=== PATIENT | male | born 1965 | race Hispanic/Latino ===

== ENCOUNTER 2018-03-11 09:08 | Inpatient (IN) | payer SELFPAY ==
[2018-03-11 09:48] LABS: Absolute Monocytes 0.6 K/uL (0.1-1.3); Absolute Neutrophil 4.3 K/uL (1.8-8.0); Basophils % 0.5 % (0-1.3); Eosinophils % 5.7 % (0-4.4); Hematocrit 42.2 % (39.6-49.0); Lymphocytes % 27.4 % (15.3-44.8); MCH 31.6 pg (27.0-35.0); MCV 90.9 fL (80-100); MPV 8.4 fL (7.6-11.3); Monocytes % 8.4 % (3.3-12.3); RBC Red Blood Cell Count 4.65 M/uL (4.33-5.43)
[2018-03-11 09:58] LABS: Bicarbonate 26 mEq/L (21-31); Glucose Level 131 mg/dL (65-120); Lipase 60 U/L (22-51); Potassium 3.9 mEq/L (3.6-5.0); Sodium Level 139 mEq/L (135-145)
[2018-03-11] MEDS ORDERED: PROMETHAZINE 25 MG/ML VIAL ONE (10:00)
[2018-03-11] MEDS ORDERED: NA CHLORIDE 0.9% 1,000 ML ONE (10:00)
[2018-03-11] MEDS ORDERED: MEPERIDINE HCL 25 MG/0.5 ML ONE (10:00)
[2018-03-11 10:04] LABS: ALT/SGPT 84 IU/L (10-60); AST/SGOT 64 IU/L (10-42); Albumin 3.8 g/dL (3.2-5.5); Alkaline Phosphatase 120 IU/L (42-121); BUN Blood Urea Nitrogen 13 mg/dL (6-20); Bilirubin Direct 0.2 mg/dL (0-0.2); Bilirubin Total 0.7 mg/dL (0.3-1.2); Protein, Total 7.2 g/dL (6.0-8.3)
--- NOTE | 2018-03-11 11:14 | EDPHYS ---
Physician Documentation [facility] Name: Monty Gordon Age: 52 yrs Sex: Male : 1965 Arrival Date: 03/11/2018 Time: 09:12 Bed 14 Private MD: None, None ED Physician Mati Cuellar HPI: 03/11 10:40 This 52 yrs old Male presents to ER via Ambulatory with complaints of jr8 Abdominal Pain. 10:40 The patient presents with abdominal pain in the upper abdomen. Onset: The jr8 symptoms/episode began/occurred acutely, today. The symptoms radiate to right back. Associated signs and symptoms: Pertinent positives: nausea. The symptoms are described as shooting. Modifying factors: The symptoms are alleviated by nothing, the symptoms are aggravated by nothing. Severity of pain: At its worst the pain was moderate in the emergency department the pain is unchanged. The patient has not experienced similar symptoms in the past. The patient has not recently seen a physician. Historical: - Allergies: 09:19 No Known Allergies; aa5 - PMHx: 09:19 Hep C; Asthma; aa5 - PSHx: 09:19 Hernia repair; aa5 - Immunization history:: Adult Immunizations unknown. - Social history:: Smoking status: Patient uses tobacco products, smokes one pack cigarettes per day. - Ebola Screening: : No symptoms or risks identified at this time. ROS: 10:40 Eyes: Negative for injury, pain, redness, and discharge, ENT: Negative for injury, jr8 pain, and discharge, Neck: Negative for injury, pain, and swelling, Cardiovascular: Negative for chest pain, palpitations, and edema, Respiratory: Negative for shortness of breath, cough, wheezing, and pleuritic chest pain, Back: Negative for injury and pain, MS/Extremity: Negative for injury and deformity, Skin: Negative for injury, rash, and discoloration, Neuro: Negative for headache, weakness, numbness, tingling, and seizure. 10:40 Abdomen/GI: Positive for abdominal pain, nausea, Negative for diarrhea, constipation, abdominal cramps, abdominal distension, anorexia, dysphagia, hematemesis, black/tarry stool, rectal pain, rectal bleeding, bowel incontinence, flatulence. Exam: 10:40 Eyes: Pupils equal round and reactive to light, extra-ocular motions intact. Lids and jr8 lashes normal. Conjunctiva and sclera are non-icteric and not injected. Cornea within normal limits. Periorbital areas with no swelling, redness, or edema. ENT: Nares patent. No nasal discharge, no septal abnormalities noted. Tympanic membranes are normal and external auditory canals are clear. Oropharynx with no redness, swelling, or masses, exudates, or evidence of obstruction, uvula midline. Mucous membranes moist. Neck: Trachea midline, no thyromegaly or masses palpated, and no cervical lymphadenopathy. Supple, full range of motion without nuchal rigidity, or vertebral point tenderness. No Meningismus. Cardiovascular: Regular rate and rhythm with a normal S1 and S2. No gallops, murmurs, or rubs. Normal PMI, no JVD. No pulse deficits. Respiratory: Lungs have equal breath sounds bilaterally, clear to auscultation and percussion. No rales, rhonchi or wheezes noted. No increased work of breathing, no retractions or nasal flaring. Back: No spinal tenderness. No costovertebral tenderness. Full range of motion. Skin: Warm, dry with normal turgor. Normal color with no rashes, no lesions, and no evidence of cellulitis. MS/ Extremity: Pulses equal, no cyanosis. Neurovascular intact. Full, normal range of motion. Neuro: Awake and alert, GCS 15, oriented to person, place, time, and situation. Cranial nerves II-XII grossly intact. Motor strength 5/5 in all extremities. Sensory grossly intact. Cerebellar exam normal. Normal gait. 10:40 Abdomen/GI: Inspection: obese Bowel sounds: active, all quadrants, Palpation: soft, in all quadrants, moderate abdominal tenderness, in the right upper quadrant, mass, is not appreciated, rebound tenderness, is not appreciated, voluntary guarding, is not appreciated, involuntary guarding, is not appreciated, no appreciated organomegaly, Indicators: McBurney's point is not tender, Obrien's sign is positive, Rovsing's sign is negative, Liver: no appreciated palpable abnormalities, tenderness, is not appreciated. Vital Signs: 09:18 BP 132 / 90; Pulse 77; Resp 18 S; Temp 97.7(TE); Pulse Ox 97% on R/A; Weight 104.33 kg aa5 (R); Height 5 ft. 8 in. (172.72 cm) (R); Pain 4/10; 12:00 BP 130 / 94; Pulse 79; Resp 16 S; Pulse Ox 98% on R/A; Pain 3/10; sg 13:20 BP 124 / 88; Pulse 62; Resp 16; Temp 97.7; Pulse Ox 97% on R/A; Pain 0/10; sg 09:18 Body Mass Index 34.97 (104.33 kg, 172.72 cm) aa5 MDM: 09:22 Patient medically screened. [facility] 11:03 Data reviewed: vital signs, nurses notes, lab test result(s), radiologic studies, jr8 ultrasound, and as a result, I will admit patient. Data interpreted: Pulse oximetry: on room air is 97 %. Interpretation: normal. Counseling: I had a detailed discussion with the patient and/or guardian regarding: the historical points, exam findings, and any diagnostic results supporting the discharge/admit diagnosis, lab results, radiology results, the need for further work-up and treatment in the hospital. Physician consultation: Jace Goss DO was called at 11:03, was contacted at 11:03, regarding admission, to the medical/surgical unit. consult, patient's condition, and will see patient. 03/11 09:23 Order name: Basic Metabolic Panel; Complete Time: 10:41 03/11 09:23 Order name: CBC with Diff; Complete Time: 09:50 03/11 09:23 Order name: Creatinine for Radiology; Complete Time: 10:01 03/11 09:23 Order name: Hepatic Function; Complete Time: 10:41 03/11 09:23 Order name: Lipase; Complete Time: 10:41 03/11 11:28 Order name: Protime (+inr); Complete Time: 12:06 03/11 11:28 Order name: Ptt, Activated; Complete Time: 12:06 03/11 11:36 Order name: CBC with Automated Diff EDMS 03/11 11:36 Order name: CBC with Automated Diff EDMS 03/11 11:36 Order name: CBC with Automated Diff EDMS 03/11 11:36 Order name: CBC with Automated Diff EDMS 03/11 11:36 Order name: Comprehensive Metabolic Panel EDMS 03/11 11:36 Order name: Comprehensive Metabolic Panel EDMS 03/11 11:36 Order name: Comprehensive Metabolic Panel [facility] 03/11 09:57 Order name: US Abdomen Limited hb 03/11 11:31 Order name: CONS Physician Consult [facility] 03/11 11:36 Order name: CONS Physician Consult [facility] 03/11 11:36 Order name: Comprehensive Metabolic Panel [facility] 03/11 11:36 Order name: Magnesium [facility] 03/11 11:36 Order name: Magnesium [facility] 03/11 11:36 Order name: Magnesium [facility] 03/11 11:36 Order name: Magnesium [facility] 03/11 11:36 Order name: Protime (+INR) [facility] 03/11 11:36 Order name: Protime (+INR) [facility] 03/11 11:37 Order name: Urinalysis [facility] 03/11 11:37 Order name: Cholangiogram [facility] 03/11 12:53 Order name: Urine Dipstick--Ancillary (enter results) 03/11 09:23 Order name: IV Saline Lock; Complete Time: 09:46 [facility] 03/11 09:23 Order name: Labs collected and sent; Complete Time: 09:47 [facility] 03/11 09:23 Order name: Urine Dipstick-Ancillary (obtain specimen); Complete Time: 13:24 [facility] 03/11 11:36 Order name: NPO [facility] 03/11 11:37 Order name: Respiratory Therapy Consult [facility] Administered Medications: 10:09 Drug: Demerol 25 mg Route: IVP; Site: left antecubital; sg 11:45 Follow up: Response: No adverse reaction; Pain is decreased sg 10:09 Drug: Phenergan 12.5 mg Route: IVP; Site: left antecubital; sg 11:45 Follow up: Response: No adverse reaction; Nausea is decreased sg 10:09 Drug: NS 0.9% 1000 ml Route: IV; Rate: 125 ml/hr; Site: left antecubital; sg 13:27 Follow up: Response: No adverse reaction; IV Status: Infusion continued upon admission; sg IV Intake: 500ml Disposition: 16:52 Co-signature as Attending Physician, Mati Cuellar MD I agree with the assessment and kdr plan of care. Disposition: 03/11/18 11:13 Hospitalization ordered by Jace Goss for Inpatient Admission. Preliminary diagnosis are Cholelithiasis, Choledocholithiasis. - Bed requested for Telemetry/MedSurg (Inpatient). - Status is Inpatient Admission. sg - Condition is Stable. - Problem is new. - Symptoms have improved. UTI on Admission? No Signatures: Dispatcher [employer] EDMS Steffany Alvarez bd Tiago Mae RN RN sg Mati Cuellar MD MD [facility] Destini Zhu RN RN aa5 Pradeep Clark PA PA jr8 Corrections: (The following items were deleted from the chart) 12:29 11:13 Hospitalization Ordered by Jace Wolfgang for Inpatient Admission. Preliminary bd diagnosis is Cholelithiasis; Choledocholithiasis. Bed requested for Telemetry/MedSurg (Inpatient). Status is Inpatient Admission. Condition is Stable. Problem is new. Symptoms have improved. UTI on Admission? No. jr8 13:46 12:29 03/11/2018 11:13 Hospitalization Ordered by Jace Wolfgang AL for Inpatient sg Admission. Preliminary diagnosis is Cholelithiasis; Choledocholithiasis. Bed requested for Telemetry/MedSurg (Inpatient). Status is Inpatient Admission. Condition is Stable. Problem is new. Symptoms have improved. UTI on Admission? No. bd
--- NOTE | 2018-03-11 11:14 | ER ---
Nurse's Notes [facility] Name: Monty Gordon Age: 52 yrs Sex: Male : 1965 Arrival Date: 03/11/2018 Time: 09:12 Bed 14 Private MD: None, None Diagnosis: Cholelithiasis;Choledocholithiasis Presentation: 03/11 09:19 Presenting complaint: Patient states: "I woke up with abdominal pain today". Pt c/o RUQ aa5 pain and nausea. Pt denies V/D. Transition of care: patient was not received from another setting of care. Onset of symptoms was March 11, 2018. Risk Assessment: Do you want to hurt yourself or someone else? Patient reports no desire to harm self or others. Initial Sepsis Screen: Does the patient meet any 2 criteria? No. Patient's initial sepsis screen is negative. Does the patient have a suspected source of infection? No. Patient's initial sepsis screen is negative. Care prior to arrival: None. 09:19 Method Of Arrival: Ambulatory aa5 09:19 Acuity: BALBIR 3 aa5 Historical: - Allergies: 09:19 No Known Allergies; aa5 - PMHx: 09:19 Hep C; Asthma; aa5 - PSHx: 09:19 Hernia repair; aa5 - Immunization history:: Adult Immunizations unknown. - Social history:: Smoking status: Patient uses tobacco products, smokes one pack cigarettes per day. - Ebola Screening: : No symptoms or risks identified at this time. Screenin:20 Abuse screen: Denies threats or abuse. Denies injuries from another. Nutritional sg screening: No deficits noted. Tuberculosis screening: No symptoms or risk factors identified. Never had TB. Fall Risk None identified. Assessment: 09:20 General: Appears in no apparent distress. comfortable, well groomed, well developed, sg well nourished, Behavior is calm, cooperative, appropriate for age. Pain: Complains of pain in right upper quadrant Pain does not radiate. Quality of pain is described as aching, crampy. Neuro: No deficits noted. Cardiovascular: Heart tones S1 S2 present Capillary refill is brisk in bilateral fingers Patient's skin is warm and dry. Chest pain is denied. Respiratory: Airway is patent Respiratory effort is even, unlabored, Respiratory pattern is regular, symmetrical. GI: Abdomen is round non-distended, Bowel sounds present X 4 quads. Abd is soft X 4 quads Abdomen is tender to palpation in right upper quadrant. : No signs and/or symptoms were reported regarding the genitourinary system. EENT: No signs and/or symptoms were reported regarding the EENT system. Derm: Skin is pink, warm \\T\\ dry. Musculoskeletal: No signs and/or symptoms reported regarding the musculoskeletal system. 11:13 Reassessment: and Pradeep PEREZ at bedside updating pt and pt family on results, sg POC, and need for admission, pt and pt family stated understanding, no new orders received at this time, will continue to monitor. 12:00 Reassessment: Patient appears in no apparent distress at this time. Patient and/or sg family updated on plan of care and expected duration. Pain level reassessed. Patient is alert, oriented x 3, equal unlabored respirations, skin warm/dry/pink. pt laying supine in bed, eyes closed, no s/s of distress noted, awaiting a bed for admission at this time, no new orders have been received, pt and pt family stated understanding, will continue to monitor. 12:58 Reassessment: Patient appears in no apparent distress at this time. Patient and/or sg family updated on plan of care and expected duration. Pain level reassessed. Patient is alert, oriented x 3, equal unlabored respirations, skin warm/dry/pink. pt updated attempted to call report, pt nurse for 219 unavailable at this time, informed that 2nd floor charge nurse stated will call back for report, awaiting call back at this time, pt stated understanding. 13:22 Reassessment: Patient appears in no apparent distress at this time. Patient is alert, sg oriented x 3, equal unlabored respirations, skin warm/dry/pink. Patient states feeling better. Patient states symptoms have improved. 13:49 Reassessment: pt to MRI for CHOLIOANGIOGRAM testing, the pt to room 219, spoke with neil Gibbons to notify Fransico PATEL for 219. Vital Signs: 09:18 BP 132 / 90; Pulse 77; Resp 18 S; Temp 97.7(TE); Pulse Ox 97% on R/A; Weight 104.33 kg aa5 (R); Height 5 ft. 8 in. (172.72 cm) (R); Pain 4/10; 12:00 BP 130 / 94; Pulse 79; Resp 16 S; Pulse Ox 98% on R/A; Pain 3/10; sg 13:20 BP 124 / 88; Pulse 62; Resp 16; Temp 97.7; Pulse Ox 97% on R/A; Pain 0/10; sg 09:18 Body Mass Index 34.97 (104.33 kg, 172.72 cm) aa5 ED Course: 09:12 Patient arrived in ED. mr 09:12 None, None is Private Physician. mr 09:18 Arm band placed on Patient placed in an exam room, on a stretcher. aa5 09:19 Tiago Mae, RN is Primary Nurse. sg 09:20 Triage completed. aa5 09:20 No provider procedures requiring assistance completed. Initial lab(s) drawn, by me, sg sent to lab. Inserted saline lock: 20 gauge in left antecubital area, using aseptic technique. Blood collected. 09:22 [facility] jr8 09:22 Mati Cuellar MD is Attending Physician. jr8 09:22 Patient has correct armband on for positive identification. Placed in gown. Bed in low sg position. Side rails up X2. Pulse ox on. NIBP on. Warm blanket given. Head of bed elevated. 10:47 US Abdomen Limited In Process Unspecified. EDMS 10:47 Ultrasound completed. Patient tolerated well. aa4 11:12 Jace Goss DO is Hospitalizing Provider. jr8 13:00 Urine collected: clean catch specimen, jere colored. sg 13:25 Patient admitted, IV remains in place. intact, No redness/swelling at site. sg Administered Medications: 10:09 Drug: Demerol 25 mg Route: IVP; Site: left antecubital; sg 11:45 Follow up: Response: No adverse reaction; Pain is decreased sg 10:09 Drug: Phenergan 12.5 mg Route: IVP; Site: left antecubital; sg 11:45 Follow up: Response: No adverse reaction; Nausea is decreased sg 10:09 Drug: NS 0.9% 1000 ml Route: IV; Rate: 125 ml/hr; Site: left antecubital; sg 13:27 Follow up: Response: No adverse reaction; IV Status: Infusion continued upon admission; sg IV Intake: 500ml Intake: 13:27 IV: 500ml; Total: 500ml. sg Output: 13:00 Urine: 400ml (Voided); Total: 400ml. sg Outcome: 11:13 Decision to Hospitalize by Provider. francoise 13:40 Admitted to Med/surg accompanied by tech, via wheelchair, room 219, with chart, Report sg called to Fransico PATEL 13:40 Condition: stable 13:40 Instructed on the need for admit, safety practices, Demonstrated understanding of instructions. 13:46 Patient left the ED. sg Signatures: Dispatcher [employer] EDMS Tiago Mae RN RN Yvonne Jay mr MarionMartinEstella blackwell aa4 Destini Zhu RN RN aa5 Pradeep Clark PA PA jr8 Corrections: (The following items were deleted from the chart) 13:49 13:25 Admitted to Med/surg accompanied by tech, via wheelchair, room 219, with chart, sg Report called to Fransico PATEL sg 13:49 13:25 Condition: stable sg sg 13:49 13:25 Instructed on the need for admit, safety practices, Demonstrated understanding of sg instructions, sg
[2018-03-11] MEDS ORDERED: ACETAMINOPHEN 650MG/RECT SUPP PR PRN (11:29)
[2018-03-11] MEDS ORDERED: SODIUM CHLORIDE 0.9% 10ML INJ IV PRN (11:29)
[2018-03-11] MEDS ORDERED: ONDANSETRON 4 MG/2 ML VIAL IV PRN (11:29)
[2018-03-11] MEDS ORDERED: IPRATROPIUM BROM 0.5MG/2.5ML NEB PRN (11:29)
[2018-03-11] MEDS ORDERED: ACETAMINOPHEN 500 MG TAB PO PRN (11:29)
[2018-03-11] MEDS ORDERED: ALBUTEROL 2.5 MG/3 ML NEB SOL NEB PRN (11:29)
[2018-03-11] MEDS ORDERED: CEFOXITIN SODIUM 1 GM/VIAL IVPB SCH (12:00)
[2018-03-11 12:05] LABS: Protime INR 1.01
--- NOTE | 2018-03-11 12:08 | P.HP ---
Certification for Inpatient Patient admitted to: Inpatient With expected LOS: >2 Midnights Patient will require the following post-hospital care: None Practitioner: I am a practitioner with admitting privileges, knowledge of patient current condition, hospital course, and medical plan of care. Services: Services provided to patient in accordance with Admission requirements found in Title 42 Section 412.3 of the Code of Federal Regulations Patient History Date of Service: 03/11/18 Primary Care Provider: None Reason for admission: Right upper quadrant abdominal pain History of Present Illness: 52-year-old male presented to the emergency room with right upper quadrant abdominal pain last night and got worse. Patient ate around 530 this morning. The pain persisted. He rated the pain about a 5/10. It was mainly to the upper quadrant right side. No radiation of pain noted. He had some nausea with this. No fever chills noted. Patient came to the ER for evaluation. Patient seen in the ER. White count 7.4, hemoglobin 14.7. Sodium 139, potassium 3.9, BUN of 13, creatinine 0.6 with a GFR greater than 90. Glucose 131. AST slightly elevated at 64. ALT 84. Lipase 60. Bilirubin levels within normal range. Abdominal ultrasound shows stone at the neck of the gallbladder. Due to nature the findings the patient was admitted for evaluation and treatment. When I saw the patient ER, pain seemed to be controlled. Patient with history of untreated hepatitis-C, asthma. He does smoke. He drinks on occasion. He is trying to quit. Home medications list reviewed: Yes - Past Medical/Surgical History Diabetic: No -: Hepatitis-C, untreated -: Asthma -: Tobacco abuse -: Alcohol use -: Umbilical hernia repair -: Right knee arthroscopy Psychosocial/ Personal History: The patient is . He has 4 children. 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 - Family History Mother -: Lung disease (COPD), Diabetes - Social History Smoking Status: Light Tobacco smoker (1-9 cigarettes/day) Counseled patient to stop smoking for: less than 10 minutes Smoking therapy provided: Yes Patient receptive to therapy: Yes Alcohol use: Yes CD- Drugs: No Caffeine use: Yes Place of Residence: Home Review of Systems General: As per HPI Eyes: Unremarkable ENT: Unremarkable Respiratory: Unremarkable Cardiovascular: Unremarkable Gastrointestinal: Nausea, Abdominal Pain, As per HPI Genitourinary: Unremarkable Musculoskeletal: Unremarkable Integumentary: Unremarkable Neurological: Unremarkable Lymphatics: Unremarkable Physical Examination - Physical Exam General: Alert, In no apparent distress, Oriented x3, Cooperative HEENT: Atraumatic, Mucous membr. moist/pink Neck: Supple, No Thyromegaly Respiratory: Clear to auscultation bilaterally, Normal air movement Cardiovascular: Normal pulses, Regular rate/rhythm Gastrointestinal: Normal bowel sounds, Soft and benign, Non-distended, No masses , No rebound, No guarding, Tenderness (RUQ pain) Musculoskeletal: No erythema, No tenderness, No warmth Integumentary: No tenderness/swelling, No erythema, No warmth, No cyanosis Neurological: Normal speech, Normal strength at 5/5 x4 extr, Normal tone, Normal affect Lymphatics: No axilla or inguinal lymphadenopathy - Studies Laboratory Data (last 24 hrs) 03/11/18 09:20: Creatinine 0.66 03/11/18 09:20: WBC 7.4, Hgb 14.7, Hct 42.2, Plt Count 171 03/11/18 09:20: Sodium 139, Potassium 3.9, BUN 13, Creatinine 0.72, Glucose 131 H, Total Bilirubin 0.7, AST 64 H, ALT 84 H, Alkaline Phosphatase 120, Lipase 60 H Assessment and Plan - Problems (Diagnosis) (1) Abdominal pain Current Visit: Yes Status: Acute Plan: Case discussed with Surgery. Stone noted to neck of gallbladder. Will check MRCP to determine if stones in CBD. Patient will need surgery intervention. Will start IV fluids, antibiotics. Await MRCP. Qualifiers: Abdominal location: right upper quadrant Qualified Code(s): R10.11 - Right upper quadrant pain (2) Cholecystitis with cholelithiasis Current Visit: Yes Status: Acute Plan: as above Qualifiers: Cholelithiasis location: gallbladder Cholecystitis acuity: acute and chronic Biliary obstruction: with biliary obstruction Qualified Code(s): K80.13 - Calculus of gallbladder with acute and chronic cholecystitis with obstruction (3) Choledocholithiasis Current Visit: Yes Status: Acute Plan: as above (4) Hepatitis C Current Visit: Yes Status: Chronic Plan: Stable. Will need treatment as outpatient. Qualifiers: Viral hepatitis chronicity: chronic Hepatic coma status: without hepatic coma Qualified Code(s): B18.2 - Chronic viral hepatitis C (5) Elevated LFTs Current Visit: Yes Status: Acute Plan: Continue as above (6) Asthma Current Visit: Yes Status: Chronic Plan: Will continue with treatment. Will need maintenance therapy. Qualifiers: Asthma severity: mild Asthma persistence: unspecified Asthma complication type: unspecified Qualified Code(s): J45.998 - Other asthma Discharge Plan: Home Plan to discharge in: 48 Hours - Advance Directives Does patient have a Living Will: No Does patient have a Durable POA for Healthcare: No - Code Status/Comfort Care Code Status Assessed: Yes Time Spent Managing Pts Care (In Minutes): 55
[2018-03-11] MEDS ORDERED: CEFOXITIN/SWI 1gm 1 GM/10 ML SYR IV SCH (12:30)
--- NOTE | 2018-03-11 15:08 | RAD REPORT ---
EXAM DESCRIPTION: MRI - Cholangiogram - 03/11/2018 2:33 pm CLINICAL HISTORY: Right-sided abdominal pain, abnormal liver function study COMPARISON: Ultrasound same date FINDINGS: All well filled but nondilated gallbladder is identified. Gallbladder wall does not appear thickened or edematous on the source imaging. A single 2 centimeter gallstone is present near the neck of the g allbladder. No pericholecystic fluid. No intrahepatic or extrahepatic biliary tree dilatation. The common bile duct is 3 mm with no duct st one, stricture or mass identifiable. No pancreatic duct dilatation. IMPRESSION: Normal biliary tree. Single 2 centimeter gallstone. No other gallbladder abnormality seen.
[2018-03-11] MEDS: NA CHLORIDE 0.9% 1,000 ML IV SCH ×2 (15:52→23:24)
--- NOTE | 2018-03-11 16:04 | CON ---
Date of Consultation: 03/11/2018 Reason For Consultation: Abdominal pain. History Of Present Illness: The patient is a 52-year-old gentleman, who comes in with acute onset of right upper quadrant abdominal pain, which started last night. Denies any radiation. Had some naus ea, but no vomiting. No diarrhea or constipation. No blood in his stool. No dysuria or hematuria. No sore throat, runny nose, cough, headaches, or dizziness. No chest pain. Review of Systems: As above, otherwise unremarkable. Past Medical History: Hepatitis C, asthma, tobacco use, alcohol use in the past. Past Surgical History: Umbilical hernia repair, right knee surgery. Allergies: NONE. Social History: The patient does smoke. Family History: Significant for diabetes and COPD. Physical Examination: Vital Signs: Stable. He is afebrile. General: He is awake, alert, and oriented x3. Head and Neck: No evidence of icterus. Cranial nerves 2 through 12 are grossly within normal limits . No neck masses. No JVD. Throat clear. Neck is supple. Chest: Clear. Heart: S1, S2. Abdomen: Soft. Positive right upper quadrant tenderness. No rebound. No rigidity or guarding. Extremities: Adequately perfused. Nontender. Neuro: Nonfocal. Laboratory Data: White count is 7.4. INR is 1.01. Chemistry reviewed, glucose 131. AST and ALT sl ightly elevated at 64 and 84. Lipase is 60. Ultrasound of the abdomen shows an approximately 2 cm s tone stuck in the neck of the gallbladder and MRCP confirms that and does not show any stones in the bile duct. Assessment: Acute cholecystitis and cholelithiasis. Plan: Admit, n.p.o., IV fluid, IV antibiotic, to go OR for lap ginette, possible open. The patient un derstands the risks, benefits, and alternatives and agrees to procedure. /MODL Voice ID: [id number] Report ID: [id number]
[2018-03-11] MEDS: Morphine 2 MG/2 ML SYR IV PRN (16:19)
--- NOTE | 2018-03-11 17:23 | RAD REPORT ---
EXAM DESCRIPTION: US - Abdomen Exam Limited - 03/11/2018 10:47 am CLINICAL HISTORY: Abdominal pain. COMPARISON: None. FINDINGS: A 2.2 centimeter stone is present within the gallbladder neck. The gallbladder wall is not thickened. The biliary tree is normal caliber. IMPRESSION: Cholelithiasis.
[2018-03-11] MEDS: ARFORMOTEROL TARTRATE 15 MCG/2 ML VIAL.NEB NEB SCH (19:34)
[2018-03-11 20:27] LABS: Urine Appearance CLEAR; Urine Bilirubin NEGATIVE (NEG); Urine Blood NEGATIVE (NEG); Urine Color YELLOW; Urine Glucose NEGATIVE (NEG); Urine Protein NEGATIVE (NEG)
[2018-03-11 20:50] LABS: Urine Microscopic Reflex NO UMIC
[2018-03-11] MEDS: NICOTINE 21 MG/PAT TD SCH (21:32)
[2018-03-12] MEDS ORDERED: PIPERACIL/TAZO 4.5 GM VIAL IV ONE (01:22)
[2018-03-12] MEDS ORDERED: PIPERACIL/TAZO 3.375 GM VIAL IV ONE (01:37)
[2018-03-12] MEDS ORDERED: NA CHLORIDE 0.9% 100 ML ONE ×2 (01:44→03:59)
[2018-03-12] MEDS: PIPER/TAZO/NS 3.375gm 3.375 GM/100 ML BAG IV SCH ×4 (02:17→17:19)
[2018-03-12] MEDS: Morphine 2 MG/2 ML SYR IV PRN ×3 (04:53→22:26)
[2018-03-12 05:03] LABS: Absolute Lymphocytes (CBC) 1.8 K/uL (0.7-4.9); Absolute Monocytes 0.5 K/uL (0.1-1.3); Absolute Neutrophil 4.4 K/uL (1.8-8.0); Basophils % 0.7 % (0-1.3); Hematocrit 42.4 % (39.6-49.0); Lymphocytes % 25.2 % (15.3-44.8); MCH 31.7 pg (27.0-35.0); MCV 91.2 fL (80-100); MPV 8.9 fL (7.6-11.3); Monocytes % 7.2 % (3.3-12.3); RBC Red Blood Cell Count 4.65 M/uL (4.33-5.43)
[2018-03-12 05:08] LABS: Protime INR 1.01
[2018-03-12 05:29] LABS: ALT/SGPT 84 IU/L (10-60); AST/SGOT 69 IU/L (10-42); Albumin 3.4 g/dL (3.2-5.5); Alkaline Phosphatase 79 IU/L (42-121); BUN Blood Urea Nitrogen 9 mg/dL (6-20); Bicarbonate 26 mEq/L (21-31); Bilirubin Total 1.4 mg/dL (0.3-1.2); Glucose Level 115 mg/dL (65-120); Magnesium 1.9 mg/dL (1.8-2.5); Potassium 4.1 mEq/L (3.6-5.0); Protein, Total 6.5 g/dL (6.0-8.3); Sodium Level 138 mEq/L (135-145)
[2018-03-12] MEDS: ARFORMOTEROL TARTRATE 15 MCG/2 ML VIAL.NEB NEB SCH ×2 (07:26→19:15)
[2018-03-12] MEDS: NA CHLORIDE 0.9% 1,000 ML IV SCH (08:00)
[2018-03-12] MEDS: PANTOPRAZOLE 40 MG INJ IVP SCH (09:04)
[2018-03-12] MEDS: NICOTINE 21 MG/PAT TD SCH (09:05)
[2018-03-12] MEDS ORDERED: PROPOFOL 200 MG/20 ML VIAL IV ONE (09:18)
[2018-03-12] MEDS ORDERED: FENTANYL CITR 100 MCG/2 ML ONE (09:19)
[2018-03-12] MEDS ORDERED: MIDAZOLAM HCL 2 MG/2 ML INJ ONE (09:19)
[2018-03-12] MEDS ORDERED: ROCURONIUM 50 MG/5 ML VIAL IV ONE (09:19)
[2018-03-12] MEDS ORDERED: LIDOCAINE 2% ONE (09:26)
[2018-03-12] MEDS ORDERED: Ringers Lactate 1,000 ML IV ONE (10:06)
[2018-03-12] MEDS ORDERED: NS 0.9% VIAL 10 ML ONE (10:14)
[2018-03-12] MEDS ORDERED: GLYCOPYRROLATE 0.2 MG/ML SYR ONE ×3 (10:14→10:42)
--- NOTE | 2018-03-12 10:47 | P.OP ---
Manager Multicultural: Duarte DURHAM Preoperative diagnosis: Acute Cholecystitis and Cholelithiasis Postoperative diagnosis: same, Cirrhosis Primary procedure: Lap Jesenia Anesthesia: General Estimated blood loss: min Specimen: gb Findings: as above Complications: None Transferred to: Recovery Room Condition: Good
[2018-03-12] MEDS: MEPERIDINE HCL 50 MG/ML AMP ONE ×2 (10:58→11:03)
[2018-03-12] MEDS: MORPHINE 4 MG/ML SYR ONE ×2 (11:13→11:20)
[2018-03-12] MEDS ORDERED: MEPERIDINE HCL 50 MG/ML AMP ONE (11:36)
--- NOTE | 2018-03-12 14:19 | P.PN ---
Subjective Date of Service: 03/12/18 Primary Care Provider: None Chief Complaint: Right upper quadrant abdominal pain Subjective: Other (Patient NPO for surgery.) Physical Examination - Vital Signs Temperature: 97.6 F Blood Pressure: 114/75 Pulse: 82 Respirations: 17 Pulse Ox (%): 98 - Physical Exam General: Alert, In no apparent distress, Oriented x3, Cooperative HEENT: Atraumatic Neck: Supple Respiratory: Clear to auscultation bilaterally, Normal air movement Cardiovascular: Normal pulses, Regular rate/rhythm Gastrointestinal: Normal bowel sounds, Soft and benign, Non-distended, No masses , No rebound, No guarding, Tenderness (Minimal pain to the right upper quadrant) Musculoskeletal: No erythema, No tenderness, No warmth Integumentary: No erythema, No warmth, No cyanosis Neurological: Normal speech, Normal strength at 5/5 x4 extr, Normal tone, Normal affect - Studies Medications List Reviewed: Yes Assessment & Plan - Problems (Diagnosis) (1) Abdominal pain Onset Date: 03/12/18 Current Visit: Yes Status: Acute Plan: Case discussed with surgery. Patient had cholecystectomy. Liver showed cirrhosis. Patient be monitored overnight. Will advance diet as tolerated. Possible discharge in the morning. Patient with history of hepatitis. This has not been treated in the past. Patient will need treatment as an outpatient with GI. Qualifiers: Abdominal location: right upper quadrant Qualified Code(s): R10.11 - Right upper quadrant pain (2) Cholecystitis with cholelithiasis Onset Date: 03/12/18 Current Visit: Yes Status: Acute Plan: as above Qualifiers: Cholelithiasis location: gallbladder Cholecystitis acuity: acute and chronic Biliary obstruction: with biliary obstruction Qualified Code(s): K80.13 - Calculus of gallbladder with acute and chronic cholecystitis with obstruction (3) Hepatitis C Onset Date: 03/12/18 Current Visit: Yes Status: Chronic Plan: Stable. Will need treatment as outpatient. Qualifiers: Viral hepatitis chronicity: chronic Hepatic coma status: without hepatic coma Qualified Code(s): B18.2 - Chronic viral hepatitis C (4) Elevated LFTs Onset Date: 03/12/18 Current Visit: Yes Status: Acute Plan: Continue as above (5) Asthma Onset Date: 03/12/18 Current Visit: Yes Status: Chronic Plan: Will continue with treatment. Will need maintenance therapy. Qualifiers: Asthma severity: mild Asthma persistence: unspecified Asthma complication type: unspecified Qualified Code(s): J45.998 - Other asthma Discharge Plan: Home Plan to discharge in: 24 Hours Time Spent Managing Pts Care (In Minutes): 55
[2018-03-12] MEDS ORDERED: TRAMADOL HCL 50 MG TAB PO PRN (14:20)
[2018-03-12] MEDS: HYDROCODONE/APAP 7.5/325 MG TAB PO PRN (17:18)
--- NOTE | 2018-03-12 22:40 | OP ---
Date of Procedure: 03/12/2018 Surgeon: Santhosh Ramesh MD Ticket Seller: HERMINIO Fuentes. Preoperative Diagnoses: Acute cholecystitis and cholelithiasis. Postoperative Diagnoses: Acute cholecystitis and cholelithiasis, cirrhosis. Procedure Performed: Laparoscopic cholecystectomy. Estimated Blood Loss: Minimal. Specimen: Gallbladder. Findings: As above. Anesthesia: General. Complications: None. Disposition: The patient tolerated the procedure in stable condition and taken to recovery in good g eneral condition. Description Of Procedure: The patient was brought to the OR and placed in supine position. General anesthesia was begun. The patient was prepped and draped in usual sterile fashion. Marcaine 0.5% wa s infiltrated locally. A 15-blade used to make a 1 cm infraumbilical midline incision. Subcutaneous tissue was divided. The fascia was identified and divided. A #1 Vicryl stay suture was placed. Pe ritoneal cavity was entered with blunt dissection. A 12-mm trocar was placed into the peritoneal cav ity under direct vision. Pneumoperitoneum was established. Then, three 5-mm trocars were placed, 1 in the epigastrium just to the right of midline and 2 in the right subcostal region. Laparoscopy rev ealed nodular cirrhosis macular in nature, consistent with cirrhosis. Gallbladder was distended, whi ch was aspirated of bile and then retracted superiorly. There were some omental adhesions taken down with sharp and blunt dissection and then infundibulum was identified and retracted inferolaterally. Cystic duct and cystic artery were clearly identified with blunt dissection. Clips were placed. Harish th structures were divided. Cautery was used to remove the gallbladder from the liver bed. Bleeding on the liver bed was controlled with cautery. The gallbladder was retrieved through the umbilicus v ia an EndoCatch bag. Right upper quadrant was irrigated. Effluent was clear. No evidence of bleedi ng or bile leakage appreciated. Subsequently, all trocars were removed under direct vision. Stay tsang tures were tied to each other across the fascial defect. Subcutaneous wounds were irrigated. Bleedi ng was controlled with cautery. A 3-0 chromic was used to approximate the subcutaneous tissue and st aples were used to close the skin. Sterile dressing was applied. The patient was awakened and taken to recovery in good general condition. /MODL Voice ID: [id number] Report ID: [id number]
[2018-03-13] MEDS: PIPER/TAZO/NS 3.375gm 3.375 GM/100 ML BAG IV SCH ×2 (00:53→08:27)
[2018-03-13] MEDS: HYDROCODONE/APAP 7.5/325 MG TAB PO PRN ×2 (00:56→08:26)
[2018-03-13 06:16] LABS: Absolute Neutrophil 11.3 K/uL (1.8-8.0); Basophils % 0.2 % (0-1.3); Eosinophils % 0.5 % (0-4.4); Hematocrit 39.1 % (39.6-49.0); MCH 31.5 pg (27.0-35.0); MPV 9.2 fL (7.6-11.3); Monocytes % 7.1 % (3.3-12.3); RBC Red Blood Cell Count 4.29 M/uL (4.33-5.43)
[2018-03-13 06:29] LABS: ALT/SGPT 99 IU/L (10-60); AST/SGOT 84 IU/L (10-42); Albumin 3.2 g/dL (3.2-5.5); Alkaline Phosphatase 82 IU/L (42-121); BUN Blood Urea Nitrogen 11 mg/dL (6-20); Bicarbonate 23 mEq/L (21-31); Bilirubin Total 0.9 mg/dL (0.3-1.2); Glucose Level 135 mg/dL (65-120); Protein, Total 6.2 g/dL (6.0-8.3); Sodium Level 137 mEq/L (135-145)
[2018-03-13] MEDS: ARFORMOTEROL TARTRATE 15 MCG/2 ML VIAL.NEB NEB SCH (08:08)
[2018-03-13] MEDS: PANTOPRAZOLE 40 MG INJ IVP SCH (08:27)
[2018-03-13] MEDS: NICOTINE 21 MG/PAT TD SCH (08:27)
--- NOTE | 2018-03-13 10:24 | P.DS ---
Admission Date: 03/11/18 Discharge Date: 03/13/18 Primary Care Provider: None Disposition: ROUTINE DISCHARGE Discharge Condition: GOOD Reason for Admission: Right upper quadrant abdominal pain Consultations: Surgery-Dr. Ramesh Procedures: ABUS: FINDINGS: A 2.2 centimeter stone is present within the gallbladder neck. The gallbladder wall is not thickened. The biliary tree is normal caliber. IMPRESSION: Cholelithiasis MRCP: COMPARISON: Ultrasound same date FINDINGS: All well filled but nondilated gallbladder is identified. Gallbladder wall does not appear thickened or edematous on the source imaging. A single 2 centimeter gallstone is present near the neck of the gallbladder. No pericholecystic fluid. No intrahepatic or extrahepatic biliary tree dilatation. The common bile duct is 3 mm with no duct stone, stricture or mass identifiable. No pancreatic duct dilatation. IMPRESSION: Normal biliary tree. Single 2 centimeter gallstone. No other gallbladder abnormality seen. Surgery: Date of Procedure: 03/12/2018 Surgeon: Santhosh Ramesh MD Mill Manager: HERMINIO Fuentes. Preoperative Diagnoses: Acute cholecystitis and cholelithiasis. Postoperative Diagnoses: Acute cholecystitis and cholelithiasis, cirrhosis. Procedure Performed: Laparoscopic cholecystectomy. Estimated Blood Loss: Minimal. Specimen: Gallbladder. Findings: As above. Anesthesia: General. Complications: None. - Problems (1) Abdominal pain Onset Date: 03/12/18 Current Visit: Yes Status: Acute Qualifiers: Abdominal location: right upper quadrant Qualified Code(s): R10.11 - Right upper quadrant pain (2) Cholecystitis with cholelithiasis Onset Date: 03/12/18 Current Visit: Yes Status: Acute Qualifiers: Cholelithiasis location: gallbladder Cholecystitis acuity: acute and chronic Biliary obstruction: with biliary obstruction Qualified Code(s): K80.13 - Calculus of gallbladder with acute and chronic cholecystitis with obstruction (3) Hepatitis C Onset Date: 03/12/18 Current Visit: Yes Status: Chronic Qualifiers: Viral hepatitis chronicity: chronic Hepatic coma status: without hepatic coma Qualified Code(s): B18.2 - Chronic viral hepatitis C (4) Elevated LFTs Onset Date: 03/12/18 Current Visit: Yes Status: Acute (5) Asthma Onset Date: 03/12/18 Current Visit: Yes Status: Chronic Qualifiers: Asthma severity: mild Asthma persistence: unspecified Asthma complication type: unspecified Qualified Code(s): J45.998 - Other asthma (6) Cirrhosis Current Visit: Yes Status: Chronic Qualifiers: Hepatic cirrhosis type: other cirrhosis Qualified Code(s): K74.69 - Other cirrhosis of liver (7) Obesity Current Visit: Yes Status: Chronic Qualifiers: Obesity type: due to excess calories Obesity classification: adult class 2 (BMI 35 - 39.9) Serious obesity comorbidity presence: with serious comorbidity Body mass index: BMI 35.0-35.9 Qualified Code(s): E66.01 - Morbid (severe) obesity due to excess calories; Z68.35 - Body mass index (BMI) 35.0-35.9, adult (8) Alcohol use Current Visit: Yes Status: Chronic (9) Tobacco abuse Current Visit: Yes Status: Chronic Brief History of Present Illness: 52-year-old male presented to the emergency room with right upper quadrant abdominal pain last night and got worse. Patient ate around 530 this morning. The pain persisted. He rated the pain about a 5/10. It was mainly to the upper quadrant right side. No radiation of pain noted. He had some nausea with this. No fever chills noted. Patient came to the ER for evaluation. Patient seen in the ER. White count 7.4, hemoglobin 14.7. Sodium 139, potassium 3.9, BUN of 13, creatinine 0.6 with a GFR greater than 90. Glucose 131. AST slightly elevated at 64. ALT 84. Lipase 60. Bilirubin levels within normal range. Abdominal ultrasound shows stone at the neck of the gallbladder. Due to nature the findings the patient was admitted for evaluation and treatment. When I saw the patient ER, pain seemed to be controlled. Patient with history of untreated hepatitis-C, asthma. He does smoke. He drinks on occasion. He is trying to quit. Hospital Course: During the course of his stay the patient was found to have cholecystitis with cholelithiasis. MRCP showed no common bile duct stone. Patient was evaluated by surgery. Surgery was recommended. A laparoscopic cholecystectomy was done. Patient tolerated procedure well. Surgery mentioned that the liver appeared cirrhotic. Patient has underlying hepatitis-C that has not been treated. At discharge she will continue with a soft diet to be advanced as tolerated. Patient will continue with post surgery recommendations, including no heavy lifting, pushing or pulling. Patient will follow up with surgery within 1 week to follow up this hospitalization and surgery. Patient has history of hepatitis-C that is been untreated. Surgery mentioned that the liver appeared cirrhotic. Recommendation is for the patient to follow up with GI/hepatology to further evaluate and treat. Education on hepatitis-C will be provided. Recommendation is not to use Tylenol due to elevated liver function. Patient has history of asthma. At discharge patient will continue with Advair 250 mcg 1 puff twice daily and Pro air 2 puffs 3 times a day as needed for shortness of breath. Patient may follow up with pulmonology as an outpatient to further evaluate. Lifestyle modification education will be provided. Patient had elevated liver function. This is likely from hepatitis-C and recent cholecystectomy. Recommendation is to recheck CMP in 1-2 weeks to follow up and monitor resolution. Patient with history of alcohol use. Alcohol cessation education will be provided. Recommendation is to discontinue alcohol as the patient may require hepatitis treatment. Tobacco cessation education will be provided. Vital Signs/Physical Exam: Temp Pulse Resp BP Pulse Ox 97.9 F 79 16 158/77 H 97 03/13/18 08:00 03/13/18 08:00 03/13/18 08:00 03/13/18 08:00 03/13/18 08:00 General: Alert, In no apparent distress, Oriented x3, Cooperative HEENT: Atraumatic Neck: Supple Respiratory: Clear to auscultation bilaterally, Normal air movement Cardiovascular: Normal pulses, Regular rate/rhythm Gastrointestinal: Normal bowel sounds, Soft and benign, Non-distended, No tenderness, No masses, No rebound, No guarding Musculoskeletal: No erythema, No tenderness, No warmth Integumentary: No tenderness/swelling, No erythema, No warmth, No cyanosis Neurological: Normal speech, Normal strength at 5/5 x4 extr, Normal tone, Normal affect Lymphatics: No axilla or inguinal lymphadenopathy Laboratory Data at Discharge: WBC 14.4 K/uL (4.3-10.9) H D 03/13/18 05:15 Hgb 13.5 g/dL (13.6-17.9) L 03/13/18 05:15 Hct 39.1 % (39.6-49.0) L 03/13/18 05:15 Plt Count 157 K/uL (152-406) 03/13/18 05:15 PT 11.9 SECONDS (9.5-12.5) 03/12/18 04:21 INR 1.01 03/12/18 04:21 APTT 27.3 SECONDS (24.3-36.9) 03/11/18 11:40 Sodium 137 mEq/L (135-145) 03/13/18 05:15 Potassium 4.0 mEq/L (3.6-5.0) 03/13/18 05:15 BUN 11 mg/dL (6-20) 03/13/18 05:15 Creatinine 0.75 mg/dL (0.61-1.24) 03/13/18 05:15 Glucose 135 mg/dL (65-120) H 03/13/18 05:15 Magnesium 2.0 mg/dL (1.8-2.5) 03/13/18 05:15 Total Bilirubin 0.9 mg/dL (0.3-1.2) 03/13/18 05:15 AST 84 IU/L (10-42) H 03/13/18 05:15 ALT 99 IU/L (10-60) H 03/13/18 05:15 Alkaline Phosphatase 82 IU/L (42-121) 03/13/18 05:15 Lipase 60 U/L (22-51) H 03/11/18 09:20 Home Medications: Albuterol Inhaler [Ventolin Inhaler*] 1 puff IN Q6HR PRN #1 hfa.aer.ad 03/13/18 Fluticasone/Salmeterol [Advair 250-50 Diskus] 1 each IH BID #1 blst.w.dev Pantoprazole Sodium [Protonix] 40 mg PO DAILY #30 tablet. 03/13/18 New Medications: Albuterol Inhaler [Ventolin Inhaler*] 1 puff IN Q6HR PRN #1 hfa.aer.ad PRN Reason: Shortness Of Breath Fluticasone/Salmeterol [Advair 250-50 Diskus] 1 each IH BID #1 blst.w.dev Pantoprazole Sodium [Protonix] 40 mg PO DAILY #30 tablet. Patient Discharge Instructions: 1. Patient will need to follow up with a PCP in the local area to establish care and follow up this hospitalization. 2. Patient presented with abdominal pain. Patient found to have cholelithiasis with cholecystitis. Patient evaluated by surgery. Laparoscopic cholecystectomy performed. Patient tolerated procedure well. At discharge patient may continue with a soft diet and advance as tolerated. Recommendations for the patient follow up with surgery in 1 week to follow up this hospitalization and surgery. Recommendation on no heavy lifting, pushing or pulling at this time. Patient is to keep wound clean and dry. 3. Patient may have GERD. At discharge he will continue with Protonix 40 mg 1 pill once daily. Patient may benefit with GI evaluation as an outpatient. 4. Patient has history of untreated hepatitis-C. Surgery noted cirrhosis of the liver. Recommendation is for the patient to follow up with GI as an outpatient to consider treatment. Recommendation on no further use of Tylenol in the future due to his hepatitis. Education on hepatitis-C will be provided. 5. Alcohol and tobacco cessation education will be provided. 6. Patient with underlying asthma. At discharge he will continue with Advair 250 mcg 1 puff twice daily and Pro air 2 puffs 3 times a day as needed for shortness of breath. Recommendation is for the patient follow up with pulmonology as an outpatient to further evaluate and monitor. Diet: AHA Activity: No lifting more than 10 lbs Followup: Santhosh Ramesh MD [ACTIVE - CAN ADMIT] - 1 Week Time spent managing pt's care (in minutes): 55
--- NOTE | 2018-03-13 12:03 | PN ---
Date of Progress Note: 03/13/2018 Subjective: The patient is awake, alert, tolerating diet, ambulating. Pain controlled on p.o. pain medications. Objective: Vital Signs: Stable. Afebrile. Abdomen: Benign. Assessment: Status post laparoscopic cholecystectomy and hepatitis C with cirrhosis. Recommendations: Clear for discharge. Followup in my office in a week. Advised to get a liver spec ialist to evaluate his hep C and cirrhosis. /MODL Voice ID: [id number] Report ID: [id number]
== END 2018-03-13 11:29 | disposition home or self-care (01) | DRG 419 ==
LOC: ER 09:08 → ERHOLD 11:29 → 2ND 13:30
PROVIDERS: ADMIT Family Medicine; ATTEND Family Medicine
PROC: 0FT44ZZ Resection of Gallbladder, Percutaneous Endoscopic Approach (ICD-10-PCS; principal; 2018-03-12 11:30)
DX: K80.00 Calculus of gallbladder with acute cholecystitis without obstruction (principal); B18.2 Chronic viral hepatitis C; K74.60 Unspecified cirrhosis of liver; E66.01 Morbid (severe) obesity due to excess calories; Z68.35 Body mass index [BMI] 35.0-35.9, adult; J45.909 Unspecified asthma, uncomplicated; Z72.89 Other problems related to lifestyle; F17.210 Nicotine dependence, cigarettes, uncomplicated
CPT/HCPCS: 36415; 74181; 76705; 80048; 80053; 80076; 81003; 83690; 83735; 85025; 85610; 85730; 88304; 94640; 96361; 96374; 96375; 99285; C9113; J2175; J2250; J2270; J2543; J2550; J3010; J3490; J7030; J7605

== ENCOUNTER 2019-02-22 18:43 | Emergency (ER) | payer BC, SELFPAY ==
--- NOTE | 2019-02-22 19:34 | ER ---
Nurse's Notes [facility] Name: Monty Gordon Age: 53 yrs Sex: Male : 1965 Arrival Date: 02/22/2019 Time: 18:44 Bed 28 Private MD: Wilner Willis T Diagnosis: Encounter for screening, unspecified Presentation: 02/22 19:17 Presenting complaint: Patient states: My left ear feels clogged for about a week now ed1 and it is messing with my head. I was referred to an ENT but I work and can't go so I need yall to get it out. Transition of care: patient was not received from another setting of care. Onset of symptoms was February 15, 2019. Risk Assessment: Do you want to hurt yourself or someone else? Patient reports no desire to harm self or others. Initial Sepsis Screen: Does the patient meet any 2 criteria? No. Patient's initial sepsis screen is negative. Does the patient have a suspected source of infection? No. Patient's initial sepsis screen is negative. Care prior to arrival: None. 19:17 Method Of Arrival: Ambulatory ed1 19:17 Acuity: BALBIR 4 ed1 Triage Assessment: 19:20 General: Appears in no apparent distress. Behavior is calm, cooperative. Pain: ed1 Complains of pain in left ear Pain currently is 7 out of 10 on a pain scale. EENT: Reports pain in left ear. Historical: - Allergies: 19:20 No Known Allergies; ed1 - Home Meds: 19:20 ProAir HFA inhalation inhalation as needed [Active]; ed1 - PMHx: 19:20 Asthma; HEP C; ed1 - PSHx: 19:20 Cholecystectomy; ed1 - Immunization history:: Adult Immunizations up to date. - Social history:: Smoking status: Patient uses tobacco products, smokes one-half pack cigarettes per day. - Ebola Screening: : Patient negative for fever greater than or equal to 101.5 degrees Fahrenheit, and additional compatible Ebola Virus Disease symptoms Patient denies exposure to infectious person Patient denies travel to an Ebola-affected area in the 21 days before illness onset No symptoms or risks identified at this time. Screenin:45 Abuse screen: Denies threats or abuse. Denies injuries from another. Nutritional rv screening: No deficits noted. Tuberculosis screening: No symptoms or risk factors identified. Fall Risk None identified. Assessment: 19:30 General: Appears in no apparent distress. uncomfortable, Behavior is calm, cooperative. rv Pain: Complains of pain in left ear. Neuro: Level of Consciousness is awake, alert, obeys commands, Oriented to person, place, time, situation. 19:30 Cardiovascular: Capillary refill < 3 seconds. Respiratory: Airway is patent. GI: No rv signs and/or symptoms were reported involving the gastrointestinal system. : No signs and/or symptoms were reported regarding the genitourinary system. EENT: Ear canal clogged. Derm: Skin is intact. Musculoskeletal: No signs and/or symptoms reported regarding the musculoskeletal system. Vital Signs: 19:20 BP 122 / 86; Pulse 78; Resp 18; Temp 97.3; Pulse Ox 96% on R/A; Weight 104.33 kg; ed1 Height 5 ft. 9 in. (175.26 cm); Pain 7/10; 19:20 Body Mass Index 33.96 (104.33 kg, 175.26 cm) ed1 ED Course: 18:44 Patient arrived in ED. as 18:45 Wilner Willis MD is Private Physician. as 19:18 Triage completed. ed1 19:20 Arm band placed on left wrist. ed1 19:26 Kirby Floyd MD is Attending Physician. 19:29 Clayton Mott, JORGE is Primary Nurse. rv 19:33 Jemima Mott MD is Referral Physician. gs 19:45 Patient has correct armband on for positive identification. Bed in low position. Call rv light in reach. Side rails up X 1. Pulse ox on. NIBP on. 19:45 No provider procedures requiring assistance completed. Patient did not have IV access rv during this emergency room visit. Administered Medications: No medications were administered Outcome: 19:34 Discharge ordered by . 19:45 Medical screen evaluation completed per provider. Patient declined treatment. rv 19:45 Condition: unchanged 19:45 Following a medical screening exam, the patient was provided information regarding alternative care sites and resources available per registration personnel. 19:46 Patient left the ED. rv Signatures: Carmen Ford Erika RN RN ed1 Kirby Floyd MD MD Pantera, Clayton, RN RN rv
--- NOTE | 2019-02-22 19:34 | EDPHYS ---
Physician Documentation [facility] Name: Monty Gordon Age: 53 yrs Sex: Male : 1965 Arrival Date: 02/22/2019 Time: 18:44 Bed 28 Private MD: Wilner Willis T ED Physician Kirby Floyd HPI: 02/22 19:32 This 53 yrs old Male presents to ER via Ambulatory with complaints of Ear Pain.gs 19:32 The patient presents with pain. The complaints affect the left ear. Onset: The gs symptoms/episode began/occurred 2 week(s) ago, and became persistent. Associated signs and symptoms: Pertinent negatives: fever, lightheadedness, nausea. Severity of symptoms: At their worst the symptoms were moderate in the emergency department the symptoms are unchanged. The patient has experienced similar episodes in the past, a few times. Historical: - Allergies: 19:20 No Known Allergies; ed1 - Home Meds: 19:20 ProAir HFA inhalation inhalation as needed [Active]; ed1 - PMHx: 19:20 Asthma; HEP C; ed1 - PSHx: 19:20 Cholecystectomy; ed1 - Immunization history:: Adult Immunizations up to date. - Social history:: Smoking status: Patient uses tobacco products, smokes one-half pack cigarettes per day. - Ebola Screening: : Patient negative for fever greater than or equal to 101.5 degrees Fahrenheit, and additional compatible Ebola Virus Disease symptoms Patient denies exposure to infectious person Patient denies travel to an Ebola-affected area in the 21 days before illness onset No symptoms or risks identified at this time. ROS: 19:32 All other systems are negative. gs Exam: 19:32 Head/Face: Normocephalic, atraumatic. Eyes: Pupils equal round and reactive to light, gs extra-ocular motions intact. Lids and lashes normal. Conjunctiva and sclera are non-icteric and not injected. Cornea within normal limits. Periorbital areas with no swelling, redness, or edema. Neck: Trachea midline, no thyromegaly or masses palpated, and no cervical lymphadenopathy. Supple, full range of motion without nuchal rigidity, or vertebral point tenderness. No Meningismus. Respiratory: Lungs have equal breath sounds bilaterally, clear to auscultation and percussion. No rales, rhonchi or wheezes noted. No increased work of breathing, no retractions or nasal flaring. Abdomen/GI: Soft, non-tender, with normal bowel sounds. No distension or tympany. No guarding or rebound. No evidence of tenderness throughout. Back: No spinal tenderness. No costovertebral tenderness. Full range of motion. Skin: Warm, dry with normal turgor. Normal color with no rashes, no lesions, and no evidence of cellulitis. MS/ Extremity: Pulses equal, no cyanosis. Neurovascular intact. Full, normal range of motion. Neuro: Awake and alert, GCS 15, oriented to person, place, time, and situation. Cranial nerves II-XII grossly intact. Motor strength 5/5 in all extremities. Sensory grossly intact. Cerebellar exam normal. Normal gait. 19:32 Constitutional: The patient appears alert, awake. 19:32 ENT: Ear canal(s): cerumen impaction, that is severe, occluding the left ear canal. Vital Signs: 19:20 BP 122 / 86; Pulse 78; Resp 18; Temp 97.3; Pulse Ox 96% on R/A; Weight 104.33 kg; ed1 Height 5 ft. 9 in. (175.26 cm); Pain 7/10; 19:20 Body Mass Index 33.96 (104.33 kg, 175.26 cm) ed1 MDM: 19:31 Patient medically screened. 19:32 Data reviewed: vital signs, nurses notes. Counseling: I had a detailed discussion with the patient and/or guardian regarding: the need for outpatient follow up, an ENT specialist. Administered Medications: No medications were administered Disposition: 19:35 cerumen impaction left ear canal. Disposition: 02/22/19 19:34 Discharged to Home. Impression: Encounter for screening, unspecified. - Condition is Stable. - Medication Reconciliation Form, Thank You Letter, Antibiotic Education, Prescription Opioid Use form. - Follow up: Jemima Mott MD; When: 1 - 2 days; Reason: Re-evaluation by your physician. Signatures: Aurelia Grover RN RN ed1 Kirby Floyd MD MD Clayton Mott RN RN rv Corrections: (The following items were deleted from the chart) 19:46 19:34 02/22/2019 19:34 Discharged to Home. Impression: Encounter for screening, rv unspecified. Condition is Stable. Forms are Medication Reconciliation Form, Thank You Letter, Antibiotic Education, Prescription Opioid Use. Follow up: Jemima Mott; When: 1 - 2 days; Reason: Re-evaluation by your physician. gs
== END 2019-02-22 19:46 | disposition home or self-care (01) ==
LOC: ER 18:43
DX: H61.22 Impacted cerumen, left ear (principal); J45.909 Unspecified asthma, uncomplicated; B19.20 Unspecified viral hepatitis C without hepatic coma; F17.210 Nicotine dependence, cigarettes, uncomplicated
CPT/HCPCS: 99282